=== PATIENT | male | born 1995 | race Two or more races ===

== ENCOUNTER 2019-11-08 10:06 | Emergency (ER) | payer SELFPAY ==
[~2019-11-08] VITALS: Ht 177.8 cm; Wt 88.5 kg
[2019-11-08 10:11] VITALS: BP 136/80
--- NOTE | 2019-11-08 10:20 | NUR ---
ED Nurse Note: patient walked into ED from home c/o multiple lip blisters for 3 days. patient reports pain 6/10. patient is alert awake x4 ambulatory, breathing unlabored and even, speaking in full sentences.
[2019-11-08] MEDS ORDERED: ACYCLOVIR400 MG ORAL (10:31)
[2019-11-08 10:37] VITALS: BP 136/80
--- NOTE | 2019-11-08 10:37 | Emergency Room Report ---
History of Present Illness General Chief Complaint: Skin Rash/Abscess Source: Patient Present Illness HPI Disclaimer: Please note that this report is being documented using DRAGON technology. This can lead to erroneous entry secondary to incorrect interpretation by the dictating instrument. HPI: 24-year-old male presents for evaluation of lip lesion. Symptoms began 2 to 3 days ago. He notes painful tender vesicles over the left lower lip and on the tip of his tongue. He states he has had a recurrent rash since he was a little kid but is never had formal testing. Believes he has an HSV infection but this is never been proven. He has taken acyclovir in the past with good effect. He denies any fever, chills, pain with swallowing, difficulty eating or drinking, pain in the back of the throat, history of HIV, chest pain, shortness of breath, cough or other changes in his health. PMH: Drug abuse Allergies: Haldol, Seroquel Social Hx: Methamphetamine abuse currently in rehab program Allergies: Coded Allergies: HALOPERIDOL (Verified Allergy, Unknown, 11/08/19) QUETIAPINE (Verified Allergy, Unknown, 11/08/19) Nursing Documentation-PMH History Of Psychiatric Problem: Yes - Anxiety, Depression Review of Systems All Other Systems: negative except mentioned in HPI Physical Exam Vital Signs Date Time Temp Pulse Resp B/P (MAP) Pulse Ox O2 Delivery O2 Flow Rate FiO2 11/08/19 10:11 97.9 78 18 136/80 99 Room Air General: Awake and alert, no acute distress HEENT: NC/AT. EOMI. 2-3 clusters of vesicles in the right lower lip on the mucosal surface with mild erythematous base. Also 1 has a: The tip of the tongue. No surrounding edema. No purulent drainage. No bleeding. Resp: Normal work of breathing Skin: 2-3 clusters of vesicles in the right lower lip on the mucosal surface with mild erythematous base. Also 1 has a: The tip of the tongue. No surrounding edema. No purulent drainage. No bleeding. MSK: Normal tone and bulk. Moving all extremities. No obvious deformity. Neuro: Awake and alert. Mentating appropriately Medical Decision Making Diagnostic Impression: Primary Impression: Facial rash ER Course 24-year-old male presents for evaluation of lip and tongue lesions. Differential includes was not limited to HSV, aphthous ulcers, heat injury. No indication of TN, Ho-Naveed's or other concerning pathology. This may be an aphthous ulcer as the patient recently relapsed on methamphetamine states he is been dry grinding his teeth a lot however he has a history of recurrent vesicular rashes since he was a little kid concerning for HSV. He has been on acyclovir in the past suggesting likely herpes labialis. We will restart acyclovir and he can follow-up with outpatient testing. He is currently in a drug rehab program. I offered him additional resources but he states he is doing well with his current program aside from his most recent relapse. He has no other concerns or complaints at this time. Stable for outpatient follow-up. Can return with new or worsening symptoms. Last Vital Signs Date Time Temp Pulse Resp B/P (MAP) Pulse Ox O2 Delivery O2 Flow Rate FiO2 11/08/19 10:11 97.9 78 18 136/80 (98) 99 Room Air Disposition: HOME, SELF-CARE Condition: Stable Scripts Acyclovir* (ACYCLOVIR*) 400 Mg Tablet 400 MG ORAL TID for 10 Days, #30 TAB Prov: Galindo Burns MD 11/08/19 Referrals: Tyra Dow [facility] *Patients are seen by appointment only* [facility] Patient Instructions: Herpes Labialis Additional Instructions: Please follow-up with 1 of the multiple testing centers listed here in your discharge paperwork for HSV testing and and any other tests you may want. Take the acyclovir as prescribed. Follow-up with your doctor 1 of the clinics listed here in your discharge paperwork. Return with any new or worsening symptoms. Galindo Burns MD Nov 08, 2019 10:37
--- NOTE | 2019-11-08 10:37 | NUR ---
ER DISCHARGE NOTE: Patient is cleared to be discharged per ERMD DR MARLEY, pt is aox4, on room air, with stable vital signs. pt was given dc and prescription instructions, pt was able to verbalize understanding, pt id band removed without complications. pt is able to ambulate with steady gait. pt took all belongings.
== END 2019-11-08 10:41 | disposition home or self-care (01) ==
LOC: EMR 10:29
DX: R21 Rash and other nonspecific skin eruption (principal); Z88.8 Allergy status to other drugs, medicaments and biological substances; F41.9 Anxiety disorder, unspecified; F32.9 Major depressive disorder, single episode, unspecified
CPT/HCPCS: 99282